=== PATIENT | male | born 1980 | race Caucasian/White ===

== ENCOUNTER 2016-07-07 18:21 | Inpatient (IN) | payer OTHER ==
--- NOTE | 2016-07-07 18:30 | ED Physician Chart ---
Chief Complaint/HPI - Patient Information Date Seen:: 07/07/16 Time Seen:: 18:30 Chief Complaint:: Abdominal pain for about 2 weeks. History of Present Illness:: Pt c/o intermittent epigastric/RUQ pain for about 2 weeks, precipitated and aggravated with food ingestion, especially fatty/greasy food and dairy products. Pain is characterized as localized and crampy in nature. No fever. Transient nausea/vomiting yesterday with vomitus consists of gastric content. No hematemesis. Last BM this morning. Small in quantity with normal color/ consistency. No hematochezia or melena. No lightheadedness. Allergies:: NKA Vitals:: see Nurse Note. Historian:: Patient Family MD/PCP:: unknown LMP:: N/A Review:: Nurse's Note Reviewed Review of Systems - Review of Systems General/Constitutional: No fever, No chills, No weight loss, No weakness, No diaphoresis, No edema, No loss of appetite Skin: No skin lesions, No rash, No bruising Head: No headache, No light-headedness Eyes: No loss of vision, No pain, No diplopia ENT: No earache, No nasal drainage, No sore throat, No tinnitus Neck: No neck pain, No swelling, No thyromegaly, No stiffness, No mass noted Cardio Vascular: No chest pain, No palpitations, No PND, No orthopnea, No edema Pulmonary: No SOB, No cough, No sputum, No wheezing GI: Nausea, Vomiting (transient, see HPI.), No diarrhea, Pain, No melena, No hematochezia, No constipation, No hematemesis G/U: No dysuria, No frequency, No hematuria Musculoskeletal: No bone or joint pain, No back pain, No muscle pain Endocrine: No polyuria, No polydipsia Psychiatric: No prior psych history Hematopoietic: No bruising, No lymphadenopathy Allergic/Immuno: No urticaria, No angioedema Neurological: No syncope, No focal symptoms, No weakness, No paresthesia, No headache, No seizure, No dizziness, No confusion, No vertigo Past Medical History - Past Medical History Past Medical History: PUD/GERD Family History: Cancer (PGM) Social History: Non Smoker, No Alcohol, No Drug Use, Legally, Employed , Other (lives with his children.) Employment:: [employer] Surgical History: None Psychiatricy History: None Medication: Reviewed Family Medical History - Family Member Mother History Unknown: Yes Physical Exam - Physical Examination General/Constitutional: Awake, Well-developed, well-nourished, Alert, No distress, GCS 15, Non-toxic appearing, Ambulatory Head: Atraumatic Eyes: Lids, conjuctiva normal, PERRL, EOMI Other Eyes comments:: Scleral icterus noticed. Skin: Nl inspection, No rash, No skin lesions, No ecchymosis, Well hydrated, No lymphadenopathy ENMT: External ears, nose nl, Nasal exam nl, Lips, teeth, gums nl, Oropharynx nl Neck: Nontender, Full ROM w/o pain, No nuchal rigidity, No mass, No stridor Respiratory: Nl effort/Exclusion, Clear to Auscultation, No Wheeze/Rhonchi/Rales Cardio Vascular: RRR, No murmur, gallop, rubs, NL S1 S2 GI: No organomegaly, No hernia, Normal BS's, Nondistended, No mass/bruits, No McBurney tenderness Other GI comments:: Tenderness to palpation at RUQ. No R/G. +/- Kramer's sign. Negative [place]'s and Harris-Thibodeaux's signs. Extremities: No tenderness or effusion, Full ROM, normal strength in all extremities, No edema, Normal digits & nails Neuro/Psych: Alert/oriented (oriented x 3.), Judgement/insight normal, Mood normal, Normal gait, No focal deficits Labs/Radiology/EKG Results - Lab Results Results: Laboratory Tests 07/07/16 07/07/16 07/07/16 19:05 19:20 19:20 WBC 7.8 RBC 5.38 Hgb 15.7 Hct 45.6 MCV 84.8 MCH 29.2 MCHC Differential 34.4 RDW 12.0 Plt Count 348 MPV 9.5 Neutrophils % 68.8 Lymphocytes % 19.7 L Monocytes % 6.7 Eosinophils % 4.8 Basophils % 0.0 PT 10.4 INR 1.05 PTT (Actin FS) 26.1 Sodium Potassium Chloride Carbon Dioxide Anion Gap BUN Creatinine Est GFR ( Amer) Est GFR (Non-Af Amer) BUN/Creatinine Ratio Glucose Calcium Total Bilirubin AST ALT Alkaline Phosphatase Total Protein Albumin Globulin Albumin/Globulin Ratio Amylase Lipase Urine Source CLEAN C Urine Color ORANGE Urine Clarity HAZY Urine pH 5.0 Ur Specific [place] Urine Protein 100 H Urine Glucose (UA) 100 H Urine Ketones 15 H Urine Blood TRACE Urine Nitrate NEGATIVE Urine Bilirubin LARGE H Urine Urobilinogen >=8.0 H Ur Leukocyte Esterase NEGATIVE Urine RBC 0-2 H Urine WBC 0-2 Ur Epithelial Cells OCCASIONAL Urine Bacteria FEW Urine Mucus MODERATE 07/07/16 19:20 WBC RBC Hgb Hct MCV MCH MCHC Differential RDW Plt Count MPV Neutrophils % Lymphocytes % Monocytes % Eosinophils % Basophils % PT INR PTT (Actin FS) Sodium 136 Potassium 3.3 L Chloride 98 Carbon Dioxide 28.3 Anion Gap 13.0 BUN 13 Creatinine 1.4 H Est GFR ( Amer) > 60.0 Est GFR (Non-Af Amer) > 60.0 BUN/Creatinine Ratio 9.3 Glucose 105 Calcium 9.7 Total Bilirubin 5.7 H AST 536 H ALT 731 H Alkaline Phosphatase 318 H Total Protein 8.1 Albumin 4.5 Globulin 3.6 Albumin/Globulin Ratio 1.3 Amylase 100 Lipase 52 Urine Source Urine Color Urine Clarity Urine pH Ur Specific [place] Urine Protein Urine Glucose (UA) Urine Ketones Urine Blood Urine Nitrate Urine Bilirubin Urine Urobilinogen Ur Leukocyte Esterase Urine RBC Urine WBC Ur Epithelial Cells Urine Bacteria Urine Mucus - Radiology Results Results: Abdominal sonogram (Preliminary report): Significant for multiple mobile gallstones seen within gallbladder; thickened wall 4.5 mm. CBD 0.96 cm thickened. See report for details. ED Septic Shock - . Is Septic Shock (SBP<90, OR Lactate>4 mmol\L) present?: No Reassessment (Disposition) - Reassessment Reassessment:: 1849 Pain medication was offered, but pt declined and stated that his pain is tolerable. 2019 Pt remains stable and comfortable. Remaining lab and abdominal sonographic reports just became available. Lab and sonographic findings have been reviewed with pt. Management plan has been discussed. Dr. Rivers is to be contacted. 2048 Case was discussed with Dr. Rivers with [facility], lab and sonographic findings reviewed. He concurred with present management. Pt is to be admitted to Med/Surg [facility] under his care. He will arrange G.I. and Surgical consultations for pt. Reassessment Condition:: Improved - Diagnosis Diagnosis:: Obstructive jaundice with biliary colic with early acute cholescystitis, stable. - Patient Disposition Admitted to:: Med/Surg Admitting Medical Physician:: Dayton Rivers Time:: 20:55 Condition at Disposition:: Stable, Improved
[2016-07-07 19:36] LABS: % EOSINOPHILS 4.8 % (0.0-5.0); % LYMPHOCYTES 19.7 % (20.0-50.0); % MONOCYTES 6.7 % (2.0-10.0); % NEUTROPHILS 68.8 % (40.0-80.0); HEMATOCRIT 45.6 % (39.0-49.0); HEMOGLOBIN 15.7 gm/dL (13.2-17.3); MEAN CELL VOLUME 84.8 fl (80-99); MEAN CORPUSCULAR HEMOGLOBIN 29.2 pg (26.0-30.0); MEAN CORPUSCULAR HGB CONC 34.4 pg (28.0-36.0); MEAN PLATELET VOLUME 9.5 fl; NEUTROPHILE ABSOLUTE 5.4 Th/cmm (1.8-8.0); PLATELET COUNT 348 Th/cmm (150-400); RED BLOOD COUNT 5.38 Mil/cmm (4.30-5.70); WHITE BLOOD COUNT 7.8 Th/cmm (4.8-10.8)
[2016-07-07 19:44] LABS: INR 1.05 (0.5-1.4); PROTHROMBIN TIME (TEST) 10.4 SECONDS (9.5-11.5)
[2016-07-07 19:48] LABS: ALB/GLOB RATIO 1.3 (1.0-1.8); ALKALINE PHOSPHATASE 318 U/L (34-104); AMYLASE SERUM 100 U/L (29-103); BILIRUBIN,TOTAL 5.7 mg/dL (0.3-1.0); BUN - UREA NITROGEN 13 mg/dL (7-25); BUN/CREATININE RATIO 9.3; CALCIUM SERUM 9.7 mg/dL (8.6-10.3); CARBON DIOXIDE 28.3 mEq/L (21.0-31.0); CHLORIDE 98 mEq/L (98-107); CREATININE - SERUM 1.4 mg/dL (0.7-1.3); GLUCOSE 105 mg/dL (70-105); LIPASE 52 U/L (11-82); POTASSIUM SERUM 3.3 mEq/L (3.5-5.1); SGOT 536 U/L (13-39); SODIUM SERUM 136 mEq/L (136-145)
[2016-07-07 19:56] LABS: URINE COLOR ORANGE; URINE GLUCOSE (UA) 100 mg/dL (NEGATIVE)
[2016-07-07 19:57] LABS: URINE BILIRUBIN LARGE (NEGATIVE); URINE BLOOD TRACE (NEGATIVE); URINE KETONE 15 mg/dL (NEGATIVE); URINE PROTEIN 100 mg/dL (NEGATIVE); URINE UROBILINOGEN >=8.0 E.U./dL (0.2 - 1.0)
[2016-07-07 19:58] LABS: URINE BACTERIA FEW /hpf (NONE SEEN); URINE EPITHELIAL CELLS OCCASIONAL /lpf (FEW); URINE RBC 0-2 /hpf (0-5); URINE WBC 0-2 /hpf (0-5)
[2016-07-07 20:03] LABS: SGPT/ALT 731 U/L (7-52)
[2016-07-07] MEDS ORDERED: Potassium Chloride 20 mEq ER Tab PO ONE ×2 (20:19→21:07)
[2016-07-07] MEDS ORDERED: Piperacillin Sodium/Tazobact 3.375 gm Vial IV ONE (21:07)
[2016-07-07] MEDS ORDERED: D5-0.9%NS 1,000 ML IV SCH (21:30)
--- NOTE | 2016-07-07 22:33 | Admit Criteria Form ---
Admit Criteria Forms - Admit Criteria Diagnosis: GALLBLADDER OR BILE DUCT INFLAMMATION OR STONE Clinical Indications for Admission to Inpatient Care ( Place 'X' for any and all applicable criteria): Admission is indicated for patients with ANY ONE of the following(1)(2)(3)(4)(5) : [ ]I. Acute cholecystitis as indicated by ALL of the following: [ ]a) Right upper quadrant pain, mass, or tenderness [ ]b) Systemic signs of inflammation indicated by ANY ONE of the following: [ ]i) Fever [ ]ii) C-reactive protein level greater than 10 mg/L (95 nmol/L) [ ]iii) White blood cell count greater than 10,000/mm3 (10 x109/L) or less than 4000/mm3 (4 x109/L) [ X]II. Inpatient admission required rather than observation care (Also use Gallbladder or Bile Duct Inflammation or Stone: Observation Care as appropriate) because of ANY ONE of the following: [X ]a) Common bile duct obstruction diagnosed [ ]b) Vomiting that is severe or persistent [X ]c) Severe pain requiring acute inpatient management [ ]d) Signs of intestinal obstruction or peritonitis [A] [ ]e) Severe electrolyte abnormalities requiring inpatient care [ ]f) Absent bowel sounds with complete ileus(8) [ ]g) Hemodynamic instability [ ]h) High fever or infection requiring inpatient admission as indicated by ANY ONE of the following (9): [ ]1) Appropriate outpatient or observation care antimicrobial Treatment. unavailable, not effective, or not feasible [ ]2) Temperature greater than 104.9 degrees F (40.5 degrees C) (oral) [ ]3) Temperature greater than 103.1 degrees F (39.5 degrees C) (oral) or less than 96.8 degrees F (36 degrees C) (rectal) that does not respond to all emergency treatment measures [ ]4) Documented bacteremia [ ]i) IV fluid to replace significant ongoing losses (greater than 3 L/m2 per day) [ ]j) Percutaneous or open drainage (eg, abscess, biliary tract) procedures [ ]k) Immediate inpatient surgery [ X]l) Other condition, treatment or monitoring requiring inpatient admission [ ]III. Acute cholangitis as indicated by ALL of the following(9)(10): [ ]a) Systemic signs of inflammation indicated by ANY ONE of the following: [ ]i) Fever [ ]ii) C-reactive protein level greater than 10 mg/L (95 nmol /L) [ ]iii) White blood cell count greater than 10,000/mm3 (10 x109/L) or less than 4000/mm3 (4 x109/L) [ ]b) Evidence of common bile duct disease indicated by ANY ONE of the following: [ ]i) Total serum bilirubin level greater than or equal to 2 mg/dL (34 micromoles/L) [ ]ii) Liver function test (alkaline phosphatase (ALP), r- glutamyltransferase (GGT), aspartate aminotransferase (AST), or alanine aminotransferase (ALT)) greater than 1.5 times the upper limit of normal[B] [ ]iii) Hepatobiliary imaging showing biliary dilatation or evidence of etiology (eg, stricture, stone, previously placed stent) Extended stay beyond goal length of stay may be needed for (1)(2)): [ ]a) Bacteremia or Hemodynamic instability [ ]b) Cholecystectomy [ ]c) Other surgical procedure(24) [ ]d) Percutaneous or endoscopic ultrasound-guided cholecystostomy The original [facility] [employer] content created by [facility] [employer] has been revised. The portions of the content which have been revised are identified through the use of italic text or in bold, and [facility] has neither reviewed nor approved the modified material. All other unmodified content is copyright [facility]. Please see references footnoted in the original [facility] edition 2016 Admit Criteria Met?: Yes
[2016-07-08] MEDS ORDERED: Morphine Sulfate 4 mg/mL 1mL Syr IVP PRN (00:16)
[2016-07-08] MEDS: Morphine Sulfate 2 mg/mL 1mL Syr IVP PRN ×2 (00:56→23:47)
[2016-07-08] MEDS: D5-0.9%NS 1,000 ML IV SCH ×2 (00:57→16:46)
[2016-07-08 07:01] VITALS: BP 137/81
[2016-07-08 08:03] LABS: ALB/GLOB RATIO 1.2 (1.0-1.8); ALKALINE PHOSPHATASE 282 U/L (34-104); ANION GAP 8.2 (7.0-16.0); BILIRUBIN,TOTAL 5.2 mg/dL (0.3-1.0); BUN - UREA NITROGEN 13 mg/dL (7-25); CALCIUM SERUM 9.1 mg/dL (8.6-10.3); CARBON DIOXIDE 25.4 mEq/L (21.0-31.0); CHLORIDE 106 mEq/L (98-107); CREATININE - SERUM 1.3 mg/dL (0.7-1.3); GLUCOSE 101 mg/dL (70-105); POTASSIUM SERUM 3.6 mEq/L (3.5-5.1); SGOT 441 U/L (13-39); SODIUM SERUM 136 mEq/L (136-145)
[2016-07-08 08:17] LABS: % BASOPHILS 0.1 % (0.0-2.0); % EOSINOPHILS 7.2 % (0.0-5.0); % LYMPHOCYTES 30.1 % (20.0-50.0); % MONOCYTES 10.8 % (2.0-10.0); % NEUTROPHILS 51.8 % (40.0-80.0); HEMATOCRIT 43.2 % (39.0-49.0); HEMOGLOBIN 14.3 gm/dL (13.2-17.3); MEAN CELL VOLUME 86.2 fl (80-99); MEAN CORPUSCULAR HEMOGLOBIN 28.5 pg (26.0-30.0); MEAN PLATELET VOLUME 9.6 fl; NEUTROPHILE ABSOLUTE 2.5 Th/cmm (1.8-8.0); PLATELET COUNT 322 Th/cmm (150-400); RED BLOOD COUNT 5.01 Mil/cmm (4.30-5.70); RED CELL DISTRIBUTION WIDTH 12.2 % (11.5-20.0)
[2016-07-08 08:20] LABS: SGPT/ALT 672 U/L (7-52)
[2016-07-08 08:21] LABS: WHITE BLOOD COUNT 4.7 Th/cmm (4.8-10.8)
[2016-07-08] MEDS ORDERED: Pneumococcal Vaccine 0.5 mL Vial IM ONE (10:08)
[2016-07-08] MEDS ORDERED: Influenza Vaccine 0.5 mL Syr IM ONE (10:08)
--- NOTE | 2016-07-08 15:12 | Diagnostic Imaging Report ---
Abdominal ultrasound HISTORY: Pain The liver exhibits a homogeneous parenchyma. No focal lesions. The exam of the gallbladder demonstrates multiple intraluminal echogenic densities with acoustic shadowing. Findings are consistent with cholelithiasis. The common bile duct is slightly dilated (9 mm). The pancreas cannot be seen due to bowel gas. The kidneys appear normal bilaterally. The spleen is normal in size. No other retroperitoneal or intra-abdominal abnormalities. IMPRESSION: 1. Findings consistent with cholelithiasis 2. Slightly dilated common bile duct (9 mm).
--- NOTE | 2016-07-08 16:36 | Diagnostic Imaging Report ---
Radionuclide biliary scan (HIDA scan) HISTORY: Pain, cholelithiasis 5.1 mCi technetium labeled biliary age and was using the exam. There is normal hepatic uptake. There is a report clearance and virtually no excretion of nuclide into the common bile duct, gallbladder or small bowel. Findings suggest changes associated with hepatocellular dysfunction. Correlation with laboratory data is needed. IMPRESSION: 1. Little hepatic clearance and excretion suggesting hepatocellular dysfunction. No excretion of nuclide into the gallbladder or small bowel. The findings should be correlated clinically and with laboratory data.
--- NOTE | 2016-07-08 21:48 | Consultation ---
REQUESTING PHYSICIAN: Dayton Rivers M.D. REASON FOR CONSULTATION: Abdominal pain. HISTORY OF PRESENT ILLNESS: A 35-year-old male, otherwise healthy, admitted for a few day history of right upper quadrant abdominal pain with some nausea without emesis. This pain has been going on and off for the last 2 weeks, it became worse 2 days ago. He had nausea, vomiting, fevers and chills. He had a CT and ultrasound done at the outside hospital that showed cholelithiasis. There was also a slightly dilated 9 mm bile duct. PAST MEDICAL HISTORY: As above. PAST SURGICAL HISTORY: Negative. MEDICATIONS: IV fluids, morphine and Zosyn. ALLERGIES: None. SOCIAL HISTORY: No recent tobacco, alcohol, or drugs. FAMILY HISTORY: Noncontributory. REVIEW OF SYSTEMS: Negative. PHYSICAL EXAMINATION: VITAL SIGNS: Temperature 98.3, blood pressure 97/61, pulse of 59, respirations 20, O2 sat is 100%. GENERAL: The patient is a well-developed, well-nourished male in no acute distress. HEENT: Sclerae not anicteric. Oropharynx is clear. CARDIOVASCULAR: Regular rate and rhythm. LUNGS: Clear to auscultation bilaterally. ABDOMEN: Soft, mild epigastric and right upper quadrant tenderness to palpation without rebound or guarding. No hepatosplenomegaly appreciated. EXTREMITIES: No clubbing, cyanosis or edema. RECTAL: Deferred. LABORATORY DATA AND IMAGING: WBC 4.7, hemoglobin 14.3, platelet count 322. INR is normal. Creatinine is normal. Bilirubin 5.2, AST 441, ALT 672, alkaline phosphatase 282. Albumin 3.9. Lipase normal. ASSESSMENT: 1. Right upper quadrant abdominal pain with possible acute cholecystitis and/or choledocholithiasis. 2. Abnormal liver enzymes. RECOMMENDATIONS: 1. We will obtain MRCP to rule out bile duct stone. If this is positive, then consider ERCP to clear the bile duct. 2. Check HIDA scan. 3. Antibiotics. 4. Follow up liver labs. 5. Surgical evaluation for consideration of cholecystectomy. Thank you, Dr. Dayton Rivers for involving us in the care of your patient. If you have any further questions, please call us. JOB# [id number]
--- NOTE | 2016-07-08 23:26 | History & Physical ---
CHIEF COMPLAINT: Abdominal pain. HISTORY OF PRESENT ILLNESS: The patient is a 35-year-old male who complains of intermittent progressive right upper quadrant abdominal pain for 2 weeks. ____ aggravated with food ____ dairy products. The pain is ____ localized and crampy in nature. No fever. The patient ____ nausea and vomiting yesterday with vomitus consisting of gastric content. No hematemesis. Less bowel movement on the morning of admission. No hematochezia or melena ____. ALLERGIES: No known allergies. REVIEW OF SYSTEMS: See present illness. PAST MEDICAL HISTORY: Peptic ulcer disease and GERD. SOCIAL HISTORY: No reports of smoking, drinking, or IV drug use. PAST SURGICAL HISTORY: Negative. MEDICATIONS: See medication reconciliation form. PHYSICAL EXAMINATION: GENERAL: The patient is awake and alert, nontoxic in appearance. VITAL SIGNS: On admission, temperature 98.5, pulse 62, blood pressure 136/91, respiratory rate 16, and O2 sat 97% on room air. HEENT: Normocephalic and atraumatic. Extraocular movements are intact. Pupils are equally round and reactive to light and accommodation. Oropharynx is clear. NECK: Supple. No thyromegaly. No lymphadenopathy. HEART: S1 and S2. No murmurs or gallops. RESPIRATORY: Clear. No wheezes or rhonchi. GASTROINTESTINAL: Abdomen is soft. Tender to palpation in the right upper quadrant. No rigidity. No guarding. Positive bowel sounds. GENITOURINARY: No CVA tenderness, no suprapubic tenderness. BACK: ____ tenderness. EXTREMITIES: Equal pulses bilaterally. No cyanosis, clubbing, or edema. SKIN: Negative. PSYCH: Negative. NEUROLOGICAL: Cranial nerves II-XII intact. Extraocular movements intact ____ LABORATORY DATA: Hematology: WBC 7.8, hemoglobin 15.7, hematocrit ____, platelet count 348 ____. PT 10.4, INR 1.05, PTT 26.1. Chemistry: Sodium ____, chloride 98, bicarb 28, anion gap 13, BUN 13, creatine ____, GFR is more than 60, glucose is 105, calcium 9.7. Total bili is 5.7, AST 536, ALT 731, alk phos is 318, total protein ____, albumin 4.5, globulin 3.6, amylase 100, lipase 52. Urinalysis shows 100 protein, 100 glucose, 15 ketones, large bilirubin, ____. RADIOLOGY: Abdominal ultrasound shows findings of cholelithiasis ____ common bile duct. IMPRESSION: 1. Obstructive jaundice. 2. Biliary colic. 3. Acute cholecystis. 4. Acute kidney injury. 5. Transaminitis. 6. ____. PLAN: Admitted the patient to med/surge unit ____ Dr. Philipp Rivers. ID consultation by Dr. Yen Banks. GI consultation by [facility]. Obtain further labs ____ as needed. JOB# [id number]
--- NOTE | 2016-07-09 02:24 | Consultation ---
PRIMARY CARE PHYSICIAN: Dr. Rivers. HISTORY OF PRESENT ILLNESS: This is a 35-year-old male who was brought to the Emergency Room with complaint of 1 week of pain in the right upper quadrant and epigastric area, moderate to severe, got worse with off and on and he decided to come to Emergency Room, where the patient was found to have cholecystitis. Infectious consultation was called for further treatment. The patient's antibiotic adjusted and examined as soon as possible. The patient also requested to have surgical and GI evaluation. Discussed with the staff, pertinent information obtained, and antibiotic adjusted. The patient was given Zosyn in the ER one dose. PAST MEDICAL HISTORY: Recurrent abdominal pain. FAMILY HISTORY: Negative. ALLERGIES: The patient is an ex-smoker. REVIEW OF SYSTEMS: A 14-point review of systems negative. PHYSICAL EXAMINATION: GENERAL: The patient is alert, awake, and oriented x 3. VITAL SIGNS: Temperature is 99.1, pulse 65, respirations 16, blood pressure 123/86, and oxygen saturation is 96%. HEENT: Mild pallor. No icterus. No plaque. NECK: Supple. LUNGS: Breath sounds bilateral . CARDIOVASCULAR: S1, S2. ABDOMEN: Tenderness epigastric right upper quadrant. No rebound and no ascites. EXTREMITIES: No ____ no focal deficits. Reflex equal both sides. Plantar flexors. LABORATORY DATA: White count is 7000, hemoglobin is 15 g, platelets 348,000, and creatinine 1.4. AST and ALT 537 and 731, alkaline phosphatase 318. UA shows protein 100, the large bilirubin. Ultrasound preliminary report shows thickening gallbladder and dilated CBD. DIAGNOSIS: Obstructive jaundice with possible common bile duct stone. PLAN: The patient started on Zosyn IV, pharmacy to adjust, GI surgery evaluation. Supportive care discussed with the patient and agreed with the current management. Thank you, Dr. Rivers for this consultation. JOB# [id number]
--- NOTE | 2016-07-09 04:44 | Consultation ---
SURGICAL CONSULTATION: TIME OF CONSULTATION: 10 p.m. HISTORY OF PRESENT ILLNESS: The patient is a 35-year-old male who complains of epigastric right upper quadrant abdominal pain for 2-week period of time intermittently. He developed severe abdominal pain, came to the Emergency Room, had some nausea and vomiting as well too. He was found on workup to have a markedly elevated total bilirubin, alkaline phosphatase, AST and ALT and abdominal ultrasound showed multiple gallstones and dilated common bile duct. A surgical evaluation was requested. He says that he has some mild abdominal pain still. PAST MEDICAL HISTORY: None. PAST SURGICAL HISTORY: None. MEDICATIONS: None. ALLERGIES: No known drug allergies. PHYSICAL EXAMINATION: VITAL SIGNS: He is 81 kg. BMI is 29. The patient is afebrile, T-max of 99.1. Vital signs otherwise stable. HEENT AND NECK: Within normal limits. No icteric sclerae, no jaundice. CHEST: Clear to auscultation bilaterally. There are no crackles, rales, rhonchi or wheezing. CARDIOVASCULAR: Regular rhythm and rate. No murmurs, rubs or gallops. S1, S2 within normal. ABDOMEN: Soft. Mild tenderness in the right upper quadrant and epigastric area. There is no guarding, rebound or generalized peritoneal sign. NEUROVASCULAR: Otherwise normal. EXTREMITIES: Otherwise normal. LABORATORY DATA: His white blood cell count is 4.7, H and H is 14 and 43, platelet count 322. His PT, PTT and INR are normal. His total bilirubin was 5.7 on admission, down to 5.2; AST was 536, down to 441; ALT was 731, down to 672; and alkaline phosphatase was 318, down to 282. Does have a few urine bacteria. Abdominal Ultrasound: Gallbladder demonstrates multiple intraluminal echogenic densities with acoustic shadowing consistent with cholelithiasis. Common bile duct is slightly dilated, 9 mm. The gallbladder nuclear scan shows a little hepatic clearance and excretion suggesting hepatocellular dysfunction. No excretion of mucoid into the gallbladder or small bowel. Limited study. IMPRESSION/PLAN: Symptomatic cholelithiasis, rule out acute cholecystitis versus cholangitis. I have reviewed the abdominal ultrasound and the HIDA scan. I believe the patient is scheduled for ERCP tomorrow by GI, Dr. Lacey. A CT scan of abdomen and pelvis is another choice of test that can be done as well too. Once the common bile duct issue has resolved and cleared of any stones, I would recommend a laparoscopic cholecystectomy on this admission prior to discharge. The risks of surgery were explained to the patient in detail including bleeding, infection, bile duct leak, bile duct injury, possibility of conversion to open cholecystectomy. He understands these risks. Nothing by mouth after midnight. JOB# [id number]
[2016-07-09 05:41] LABS: % BASOPHILS 0.5 % (0.0-2.0); % EOSINOPHILS 6.6 % (0.0-5.0); % LYMPHOCYTES 28.8 % (20.0-50.0); % MONOCYTES 9.2 % (2.0-10.0); % NEUTROPHILS 54.9 % (40.0-80.0); HEMATOCRIT 40.8 % (39.0-49.0); MEAN CELL VOLUME 85.4 fl (80-99); MEAN CORPUSCULAR HEMOGLOBIN 29.3 pg (26.0-30.0); MEAN CORPUSCULAR HGB CONC 34.3 pg (28.0-36.0); MEAN PLATELET VOLUME 8.7 fl; NEUTROPHILE ABSOLUTE 3.3 Th/cmm (1.8-8.0); PLATELET COUNT 308 Th/cmm (150-400); RED BLOOD COUNT 4.78 Mil/cmm (4.30-5.70); RED CELL DISTRIBUTION WIDTH 12.4 % (11.5-20.0); WHITE BLOOD COUNT 5.9 Th/cmm (4.8-10.8)
[2016-07-09 06:10] LABS: ALB/GLOB RATIO 1.2 (1.0-1.8); ALKALINE PHOSPHATASE 253 U/L (34-104); ANION GAP 7.1 (7.0-16.0); BUN - UREA NITROGEN 12 mg/dL (7-25); BUN/CREATININE RATIO 9.2; CALCIUM SERUM 8.9 mg/dL (8.6-10.3); CARBON DIOXIDE 24.4 mEq/L (21.0-31.0); CHLORIDE 108 mEq/L (98-107); CREATININE - SERUM 1.3 mg/dL (0.7-1.3); GLUCOSE 108 mg/dL (70-105); LIPASE 72 U/L (11-82); POTASSIUM SERUM 3.5 mEq/L (3.5-5.1); SGOT 264 U/L (13-39); SGPT/ALT 530 U/L (7-52); SODIUM SERUM 136 mEq/L (136-145)
--- NOTE | 2016-07-09 11:33 | Diagnostic Imaging Report ---
CT scan abdomen and pelvis without intravenous contrast HISTORY: Pain Total DLP equals 453 CTDI equals 8.8 Axial sections were obtained from the xiphoid process down to the pubic symphysis. The liver exhibits a normal size and contour. No focal lesions. The spleen appears normal. No abnormalities are seen in the region of the pancreas. Mildly distended gallbladder. No pericholecystic fluid is seen. The kidneys appear normal bilaterally. The exam of the pelvis demonstrates preservation of normal fat planes. No abnormal soft tissue masses or abnormal fluid collections. IMPRESSION: 1. Markedly dilated gallbladder with no other acute abnormalities.
--- NOTE | 2016-07-09 13:11 | General Progress Note ---
Subjective - Review of Systems Service Date: 07/09/16 Subjective: EVENTS NOTED. STILL SOME RUQ ABD PAIN. Objective - Results Result Diagrams: 07/09/16 05:32 07/09/16 05:32 Recent Labs: Laboratory Last Values WBC 5.9 Th/cmm (4.8-10.8) D 07/09/16 05:32 RBC 4.78 Mil/cmm (4.30-5.70) 07/09/16 05:32 Hgb 14.0 gm/dL (13.2-17.3) 07/09/16 05:32 Hct 40.8 % (39.0-49.0) 07/09/16 05:32 MCV 85.4 fl (80-99) 07/09/16 05:32 MCH 29.3 pg (26.0-30.0) 07/09/16 05:32 MCHC Differential 34.3 pg (28.0-36.0) 07/09/16 05:32 RDW 12.4 % (11.5-20.0) 07/09/16 05:32 Plt Count 308 Th/cmm (150-400) 07/09/16 05:32 MPV 8.7 fl 07/09/16 05:32 Neutrophils % 54.9 % (40.0-80.0) 07/09/16 05:32 Lymphocytes % 28.8 % (20.0-50.0) 07/09/16 05:32 Monocytes % 9.2 % (2.0-10.0) 07/09/16 05:32 Eosinophils % 6.6 % (0.0-5.0) H 07/09/16 05:32 Basophils % 0.5 % (0.0-2.0) 07/09/16 05:32 ESR 30 mm/hr (0-20) H 07/09/16 05:32 PT 10.4 SECONDS (9.5-11.5) 07/07/16 19:20 INR 1.05 (0.5-1.4) 07/07/16 19:20 PTT (Actin FS) 26.1 SECONDS (26.0-38.0) 07/07/16 19:20 Sodium 136 mEq/L (136-145) 07/09/16 05:32 Potassium 3.5 mEq/L (3.5-5.1) 07/09/16 05:32 Chloride 108 mEq/L (98-107) H 07/09/16 05:32 Carbon Dioxide 24.4 mEq/L (21.0-31.0) 07/09/16 05:32 Anion Gap 7.1 (7.0-16.0) 07/09/16 05:32 BUN 12 mg/dL (7-25) 07/09/16 05:32 Creatinine 1.3 mg/dL (0.7-1.3) 07/09/16 05:32 Est GFR ( Amer) > 60.0 ml/min (>90) 07/09/16 05:32 Est GFR (Non-Af Amer) > 60.0 ml/min 07/09/16 05:32 BUN/Creatinine Ratio 9.2 07/09/16 05:32 Glucose 108 mg/dL (70-105) H 07/09/16 05:32 Calcium 8.9 mg/dL (8.6-10.3) 07/09/16 05:32 Total Bilirubin 5.0 mg/dL (0.3-1.0) H 07/09/16 05:32 AST 264 U/L (13-39) H 07/09/16 05:32 ALT 530 U/L (7-52) H 07/09/16 05:32 Alkaline Phosphatase 253 U/L (34-104) H 07/09/16 05:32 C-Reactive Protein < 0.20 mg/dL (0.0-0.9) 07/09/16 05:32 Total Protein 6.7 gm/dL (6.0-8.3) 07/09/16 05:32 Albumin 3.7 gm/dL (4.2-5.5) L 07/09/16 05:32 Globulin 3.0 gm/dL 07/09/16 05:32 Albumin/Globulin Ratio 1.2 (1.0-1.8) 07/09/16 05:32 Amylase 100 U/L (29-103) 07/07/16 19:20 Lipase 72 U/L (11-82) 07/09/16 05:32 Urine Source CLEAN C 07/07/16 19:05 Urine Color ORANGE 07/07/16 19:05 Urine Clarity HAZY (CLEAR) 07/07/16 19:05 Urine pH 5.0 07/07/16 19:05 Ur Specific [place] (1.005-1.030) 07/07/16 19:05 Urine Protein 100 mg/dL (NEGATIVE) H 07/07/16 19:05 Urine Glucose (UA) 100 mg/dL (NEGATIVE) H 07/07/16 19:05 Urine Ketones 15 mg/dL (NEGATIVE) H 07/07/16 19:05 Urine Blood TRACE (NEGATIVE) 07/07/16 19:05 Urine Nitrate NEGATIVE (NEGATIVE) 07/07/16 19:05 Urine Bilirubin LARGE (NEGATIVE) H 07/07/16 19:05 Urine Urobilinogen >=8.0 E.U./dL (0.2 - 1.0) H 07/07/16 19:05 Ur Leukocyte Esterase NEGATIVE (NEGATIVE) 07/07/16 19:05 Urine RBC 0-2 /hpf (0-5) H 07/07/16 19:05 Urine WBC 0-2 /hpf (0-5) 07/07/16 19:05 Ur Epithelial Cells OCCASIONAL /lpf (FEW) 07/07/16 19:05 Urine Bacteria FEW /hpf (NONE SEEN) 07/07/16 19:05 Urine Mucus MODERATE /lpf (FEW) 07/07/16 19:05 - Physical Exam Vitals and I&O: Vital Signs Temp 97.8 F 07/09/16 09:47 Pulse 57 07/09/16 09:47 Resp 17 07/09/16 09:47 BP 85/49 07/09/16 09:47 Pulse Ox 100 07/09/16 09:47 Intake & Output 07/08/16 07/09/16 07/09/16 18:59 06:59 18:59 Intake Total 1249 225 Balance 1249 225 Intake: Intake, IV Amount 1149 200 D5-0.9%Ns 1,000 ml @ 60 949 mls/hr IV .[id number] YOHANA Rx #:[id number] Piperacillin Sodium/ 200 200 Tazobact 4.5 gm In Sodium Chloride 0.9% 100 ml @ 100 mls/hr IV Q8HR YOHANA Rx #:[id number] Oral 100 25 Other: # Voids 3 2 Active Medications: Current Medications Dextrose/Sodium Chloride (D5-0.9%Ns) 1,000 mls @ 60 mls/hr IV .[id number] YOHANA Stop: 09/06/16 00:44 Last Admin: 07/08/16 16:46 Dose: 60 mls/hr Piperacillin Sod/Tazobactam (Sod 4.5 gm/ Sodium Chloride) 100 mls @ 100 mls/hr IV Q8HR YOHANA Stop: 09/06/16 04:59 Last Admin: 07/09/16 12:30 Dose: 100 mls/hr Morphine Sulfate (Morphine) 2 mg IVP Q4HR PRN PRN Reason: moderate pain Stop: 09/06/16 00:13 Last Admin: 07/08/16 23:47 Dose: 2 mg Morphine Sulfate (Morphine) 4 mg IVP Q4H PRN PRN Reason: Severe Pain Stop: 09/06/16 00:15 General: Alert HEENT: Atraumatic Neck: Supple Cardiovascular: Regular rate Lungs: Clear to auscultation Abdomen: Bowel sounds, Soft, Tender (MILD RUQ) Assessment/Plan - Problem List Patient Problems: All Active Problems EPIGASTRIC PAIN (Acute) - Assessment Assessment: 1. ABD PAIN RUQ - LIKELY DUE TO ACUTE CHOLECYSTITIS AND/OR CBD STONE. 2. ABNORMAL LFT'S. 3. CHOLELITHIASIS. HIDA SHOWS MINIMAL HEPATIC EXCRETION. - Plan Plan: 1. AWAIT MRCP RESULTS - IF POSITIVE FOR CBD STONE, THEN WILL NEED PREOP ERCP TO CLEAR CBD. 2. SURGICAL F/U FOR LAP MICHAEL. 3. MONITOR LABS.
--- NOTE | 2016-07-09 14:06 | Diagnostic Imaging Report ---
Magnetic resonance Cholepancreatography (MRCP) HISTORY: Choledocholithiasis, pain Multiple MRI sequences including 3-D high-resolution thin/thick slab, SPGR were utilized. The exam demonstrates multiple intraluminal densities within the gallbladder consistent with extensive cholelithiasis. There is dilatation of the common bile duct (1.0 cm). There appears to be an approximate 4 mm intraluminal filling defect consistent with a calculus within the distal portion of the common bile duct. Minimal intrahepatic biliary dilatation. The pancreatic duct appears normal. The liver exhibits a normal size and contour. No focal lesions. The spleen appears normal. No focal parenchymal abdomen is seen within the pancreas. IMPRESSION: 1. Dilated gallbladder with evidence of extensive cholelithiasis 2. Dilated common bile duct (1.0 cm). This is associated with an approximate 4 mm intraluminal filling defect in the distal portion of the duct consistent with a calculus.
[2016-07-09] MEDS: D5-0.9%NS 1,000 ML IV SCH (16:00)
[2016-07-10 04:29] LABS: % BASOPHILS 0.3 % (0.0-2.0); % EOSINOPHILS 7.1 % (0.0-5.0); % LYMPHOCYTES 30.5 % (20.0-50.0); % MONOCYTES 8.7 % (2.0-10.0); % NEUTROPHILS 53.4 % (40.0-80.0); HEMATOCRIT 42.3 % (39.0-49.0); HEMOGLOBIN 14.1 gm/dL (13.2-17.3); MEAN CELL VOLUME 85.2 fl (80-99); MEAN CORPUSCULAR HEMOGLOBIN 28.5 pg (26.0-30.0); MEAN CORPUSCULAR HGB CONC 33.4 pg (28.0-36.0); MEAN PLATELET VOLUME 9.3 fl; NEUTROPHILE ABSOLUTE 2.9 Th/cmm (1.8-8.0); PLATELET COUNT 309 Th/cmm (150-400); RED BLOOD COUNT 4.96 Mil/cmm (4.30-5.70); RED CELL DISTRIBUTION WIDTH 12.3 % (11.5-20.0); WHITE BLOOD COUNT 5.5 Th/cmm (4.8-10.8)
[2016-07-10 05:01] LABS: INR 1.03 (0.5-1.4); PROTHROMBIN TIME (TEST) 10.2 SECONDS (9.5-11.5)
[2016-07-10 05:19] LABS: ALB/GLOB RATIO 1.2 (1.0-1.8); ALKALINE PHOSPHATASE 250 U/L (34-104); AMYLASE SERUM 45 U/L (29-103); ANION GAP 9.9 (7.0-16.0); BILIRUBIN,TOTAL 4.3 mg/dL (0.3-1.0); BUN - UREA NITROGEN 9 mg/dL (7-25); BUN/CREATININE RATIO 7.5; CALCIUM SERUM 8.6 mg/dL (8.6-10.3); CARBON DIOXIDE 24.6 mEq/L (21.0-31.0); CHLORIDE 104 mEq/L (98-107); CREATININE - SERUM 1.2 mg/dL (0.7-1.3); GLUCOSE 103 mg/dL (70-105); LIPASE 70 U/L (11-82); POTASSIUM SERUM 3.5 mEq/L (3.5-5.1); SGOT 236 U/L (13-39); SGPT/ALT 484 U/L (7-52); SODIUM SERUM 135 mEq/L (136-145)
[2016-07-10] MEDS ORDERED: IOHEXOL 300MG/ML 50 ML VIAL ONE ×2 (08:19→08:20)
[2016-07-10] MEDS ORDERED: Meperidine 25 mg/mL 1mL Syr IVP PRN (11:43)
[2016-07-10] MEDS ORDERED: Lactated Ringer 1,000 ML IV SCH (11:45)
[2016-07-10] MEDS ORDERED: Midazolam 1mg/ml 2 ml vial IV ONE (11:45)
[2016-07-10] MEDS ORDERED: fentaNYL Citrate 100 mcg/2mL Vial ONE (11:58)
--- NOTE | 2016-07-10 12:54 | Diagnostic Imaging Report ---
Fluoroscopy was utilized for facilitation of ERCP procedure. Please refer to the procedural report for complete details and recommendations. The total fluoroscopic time for the examination was 1 minute and 53 seconds.
--- NOTE | 2016-07-10 13:14 | Operative Report ---
PREPROCEDURE DIAGNOSIS: Choledocholithiasis. POSTPROCEDURE DIAGNOSES: 1. Choledocholithiasis. 2. Status post biliary sphincterotomy. 3. Status post common bile duct stone extraction by balloon sweeps. 4. Gallbladder not opacified. PROCEDURE: ERCP with sphincterotomy and stone extraction. INDICATIONS: A 35-year-old male admitted for jaundice and abdominal pain. Imaging suggested cholelithiasis and choledocholithiasis. An ERCP is planned today to clear the bile duct. CONSENT: Informed consent was obtained from the patient prior to procedure after explanation of risks, benefits and alternatives including but not limited to infection, bleeding, perforation, pancreatitis and . SEDATION: Monitored anesthesia care per Dr. Silva. DESCRIPTION OF PROCEDURE AND FINDINGS: The procedure took place as an inpatient in the operating room of [facility]. The patient was kept in a prone position. Adequate sedation was achieved by Dr. Silva. An Olympus therapeutic side-viewing duodenoscope was advanced via the patient's mouth and into the esophagus. It was advanced via the stomach into the duodenum up to second portion. The major ampulla was visualized and appeared normal. There was [id number] erosive duodenitis of the bulb and second portion. Photodocumentation was obtained. With the scope in the second portion of duodenum in the short position, the major ampulla was visualized. The bile duct was cannulated at first attempt using a sphincterotome cannula with guidewire assistance. Subsequent cholangiogram revealed a mildly dilated bile duct up to about 8-9 mm in greatest diameter with smooth tapering distally. At least 1-2 filling defects representing stones were identified in the midportion of the bile duct. The gallbladder was not opacified. Next, a biliary sphincterotomy was performed using the sphincterotome cannula over a guidewire. An approximate 1 cm, 80% cut was made. No immediate post-sphincterotomy complications such as bleeding or perforation were identified. This was followed by balloon sweeps and 3 stones were extracted from the bile duct into the duodenum. Final balloon occlusion cholangiogram was unremarkable and no further stones were identified in the bile duct. Again, the gallbladder was not opacified and cannot rule out cystic duct obstruction. There was a good flow of contrast and bile from the bile duct into the duodenum confirming patency of the sphincterotomy site. There is no need for bile duct stent placement. The patient tolerated the procedure well and no complications were noted. RECOMMENDATIONS: 1. Monitor pancreatic and liver labs. 2. Clear liquid diet for today. 3. May proceed with laparoscopic cholecystectomy as per the discretion of the surgeon. Thank you, Dr. Dayton Rivers, for involving us in the care of your patient. If you have any further questions, please call us. JOB# [id number] MTDD
[2016-07-10] MEDS: D5-0.9%NS 1,000 ML IV SCH (16:22)
[2016-07-10] MEDS: Morphine Sulfate 2 mg/mL 1mL Syr IVP PRN (20:28)
--- NOTE | 2016-07-10 22:24 | Progress Notes ---
TIME OF CONSULTATION: 10:40 p.m. SUBJECTIVE: The patient is a 35-year-old male admitted for abdominal pain, gallstones and elevated liver function test. Workup has been to rule out common bile duct stone. GI has been asked to see the patient. The patient still continues to have some right-sided upper abdominal pain, unchanged from yesterday. OBJECTIVE: VITAL SIGNS: Afebrile. Vital signs otherwise stable. HEENT AND NECK: Within normal limits. He has mild icteric sclerae, ____ obvious jaundice. CHEST: Clear to auscultation bilaterally. There are no crackles, rales, rhonchi or wheezing. HEART: Regular rhythm and rate. No murmurs, rubs or gallops. S1, S2 within normal. ABDOMEN: Soft. He has some mild right upper quadrant tenderness to deep palpation. He has no guarding, rebound or generalized peritoneal signs. NEUROVASCULAR: Otherwise normal. No flank tenderness. LABORATORY DATA: His white blood cell count 5.9, his H and H is 14 and 41, platelet count is 308. His total bilirubin 5.0, AST is 264, ALT is 530, alkaline phosphatase 253. His MRI of the abdomen reveals dilated gallbladder with evidence of extensive cholelithiasis, dilated common bile duct 1 cm. This is associated with an approximate 4 mm intraluminal filling defect in the distal portion of the duct consistent with a calculus. Blood cultures x2 were negative. PLAN: The patient is currently on Zosyn. Dr. Jaron Lacey is planning to do an ERCP on this patient tomorrow. I have discussed with him the risks and benefits of laparoscopic cholecystectomy. He wishes to proceed with laparoscopic cholecystectomy after the ERCP test and once the common bile duct is cleared of stone. Continue IV antibiotics, n.p.o. after midnight for anticipated procedure tomorrow. JOB# [id number] JONNATHAN
--- NOTE | 2016-07-11 00:27 | Progress Notes ---
SUBJECTIVE: The patient is awake and alert. The patient is on IV fluids. The patient is on pain medication. The patient is on IV antibiotics. OBJECTIVE: VITAL SIGNS: Temperature 98.6, pulse of 55, respiratory rate 18, and O2 sat is 98% on room air. CARDIOVASCULAR: S1, S2. RESPIRATORY: Clear. GASTROINTESTINAL: Soft. Positive bowel sounds. LABORATORY DATA: Hematology: WBC is 5.9, hemoglobin 14.0, platelet count of 308,000. ESR is 30. Chemistry: Sodium 137, potassium 3.5, chloride 108, bicarb 24, anion gap 7.1, BUN 12, GFR is more than 60. Glucose 108, calcium is 8.9. Total bili 5.0. AST 264. ALT 530. Alkaline phosphatase 253. Total protein 2.7, albumin 3.7, globulin 3.0, lipase 72. Microbiology: Blood culture from 07/07/2016 shows no growth. Radiology: MRCP shows dilated gallbladder with evidence of cholelithiasis. common bile duct 1.0 cm. The patient with filling defect duct calcific calculus. ASSESSMENT: 1. Obstructive jaundice. 2. Biliary colic. 3. Acute cholecystitis. 4. Acute kidney injury. 5. Transaminitis. 7. Gastroesophageal reflux disease. PLAN: Continue current medication. Awaiting culture results. The patient is scheduled for ERCP tomorrow by GI. After ERCP, the patient may require surgery. JOB# [id number] MTDD
[2016-07-11 05:45] LABS: % BASOPHILS 0.9 % (0.0-2.0); % EOSINOPHILS 7.4 % (0.0-5.0); % LYMPHOCYTES 23.1 % (20.0-50.0); % MONOCYTES 7.8 % (2.0-10.0); % NEUTROPHILS 60.8 % (40.0-80.0); HEMATOCRIT 39.2 % (39.0-49.0); HEMOGLOBIN 13.2 gm/dL (13.2-17.3); MEAN CELL VOLUME 85.8 fl (80-99); MEAN CORPUSCULAR HEMOGLOBIN 28.9 pg (26.0-30.0); MEAN CORPUSCULAR HGB CONC 33.7 pg (28.0-36.0); MEAN PLATELET VOLUME 9.6 fl; NEUTROPHILE ABSOLUTE 4.3 Th/cmm (1.8-8.0); PLATELET COUNT 268 Th/cmm (150-400); RED BLOOD COUNT 4.57 Mil/cmm (4.30-5.70); RED CELL DISTRIBUTION WIDTH 12.4 % (11.5-20.0)
[2016-07-11 05:57] LABS: ALB/GLOB RATIO 1.2 (1.0-1.8); ALKALINE PHOSPHATASE 209 U/L (34-104); ANION GAP 5.4 (7.0-16.0); BILIRUBIN,TOTAL 2.1 mg/dL (0.3-1.0); BUN - UREA NITROGEN 6 mg/dL (7-25); CALCIUM SERUM 8.1 mg/dL (8.6-10.3); CARBON DIOXIDE 23.8 mEq/L (21.0-31.0); CHLORIDE 109 mEq/L (98-107); CREATININE - SERUM 1.2 mg/dL (0.7-1.3); GLUCOSE 134 mg/dL (70-105); LIPASE 41 U/L (11-82); POTASSIUM SERUM 3.2 mEq/L (3.5-5.1); SGOT 117 U/L (13-39); SGPT/ALT 367 U/L (7-52); SODIUM SERUM 135 mEq/L (136-145)
[2016-07-11 06:03] LABS: WHITE BLOOD COUNT 7.1 Th/cmm (4.8-10.8)
[2016-07-11] MEDS: D5-0.9%NS 1,000 ML IV SCH ×2 (09:24→09:25)
[2016-07-11] MEDS ORDERED: Bupivacaine 0.5% W/Ep 10 mL Vial INJ ONE (11:30)
[2016-07-11] MEDS ORDERED: Meperidine 50 mg/mL 1mL Syr ONE ×2 (11:54→13:27)
[2016-07-11] MEDS ORDERED: Midazolam 1mg/ml 2 ml vial IV ONE (11:54)
[2016-07-11] MEDS ORDERED: Neostigmine 10mg/10mL Vial ONE (12:25)
[2016-07-11] MEDS ORDERED: Lactated Ringer 1,000 ML IV SCH (12:30)
[2016-07-11] MEDS ORDERED: Meperidine 25 mg/mL 1mL Syr IVP ONE (12:59)
[2016-07-11] MEDS: Morphine Sulfate 2 mg/mL 1mL Syr IVP PRN (17:09)
--- NOTE | 2016-07-11 18:54 | Operative Report ---
PREOPERATIVE DIAGNOSIS: Symptomatic gallstones, common bile duct stones. POSTOPERATIVE DIAGNOSIS: Symptomatic gallstones, common bile duct stones. OPERATION PERFORMED: Laparoscopic cholecystectomy. SPECIMENS: Gallbladder. ANESTHESIA: General and local. ANESTHESIOLOGIST: Dr. Silva. ESTIMATED BLOOD LOSS: 30 mL. SURGEON: Kevin Henson M.D. ASSOCIATE PROFESSOR OF ART HISTORY: None. PROSTHETIC DEVICES: None. COMPLICATIONS: None. DESCRIPTION OF PROCEDURE: After confirming the patient identification, procedure to be done, the patient was placed in supine position. The patient administered general anesthesia and intubated uneventfully. The abdomen was then prepped and draped in the usual sterile fashion. Timeout was performed. A supraumbilical transverse incision was made with a scalpel, fascia incised, and I entered into the abdominal cavity without injuring underlying bowel. CO2 pneumoperitoneum achieved using the open Schneider technique. The patient was placed in the laparoscopic cholecystectomy positioned head up and rotated to the left side. An 11 mm port was placed in the epigastric area. Two 5 mm ports were placed in right subcostal area. The gallbladder was retracted upwards and laterally. The gallbladder was somewhat distended and thickened gallbladder wall consistent with acute cholecystitis. There was a significant amount of inflammation around the neck of the gallbladder and there was omentum draped, dissected off the gallbladder using a [place] dissector. A careful dissection was performed in Calot triangle area. The cystic duct and cystic artery were identified and cleaned from surrounding structures. The gallbladder was dissected from the gallbladder plate of the liver. There were only 2 structures leading directly to the neck of the gallbladder, although the cystic duct was fairly dilated. It was somewhat elongated as well to which made the dissection a little bit more able to be done. The cystic artery and cystic duct were cleaned from surrounding structures. The critical view as described in the literature was then appreciated. The cystic artery was clipped twice proximally, once distally, and then divided. The only thing attached to the gallbladder was the cystic duct. The cystic duct was clipped twice proximally with large clips fairly across the entire cystic duct. The cystic duct was then divided. The gallbladder was then dissected free from the gallbladder plate of the liver. There was a significant amount of inflammation there which made the dissection difficult. The gallbladder was then detached from the liver, placed into an Endobag, removed through supraumbilical port site. The gallbladder fossa site was cauterized and hemostasis ensured. The irrigation fluid was suctioned out. A 10 flat Loy-Nick drain was placed in subhepatic space and brought out through one of the right subcostal trocar sites. The epigastric port was removed. The Brennan-Daniel closure system was used to approximate the fascia using 0 Vicryl stitches. A HUGH drain was placed into the abdomen, cut to length, and then brought out through one of the right subcostal trocar sites. The 5 mm port was removed under direct visualization. The pneumoperitoneum was released. The supraumbilical port fascia was approximated with interrupted 0 Vicryl sutures, the skin and subcutaneous. All port sites were then injected with 0.25% Marcaine with epinephrine. The skin was approximated using skin trish. Dressings were applied. The patient tolerated the procedure well. The patient was awoken up from anesthesia, taken to the recovery room in stable condition. JOB# [id number] JONNATHAN
--- NOTE | 2016-07-11 19:42 | Progress Notes ---
TIME OF PROGRESS NOTE: 9:11 p.m. SUBJECTIVE: The patient is a 35-year-old male followed for abdominal pain, cholelithiasis, common bile duct stones, elevated liver function tests. The patient underwent ERCP earlier today by Dr. Jaron Lacey, GI. He denies any abdominal pain. He is resting comfortably in bed. OBJECTIVE: VITAL SIGNS: He is afebrile. His vital signs are stable. HEENT AND NECK: Within normal limits. He has no icteric sclerae or jaundice. CHEST: Clear to auscultation bilaterally. There are no crackles, rales, rhonchi or wheezing. CARDIAC: Regular rhythm and rate. No murmurs, rubs or gallop. S1, S2 are normal. ABDOMEN: Soft, nontender, nondistended. NEUROVASCULAR: Otherwise normal. EXTREMITIES: Otherwise normal. LABORATORY DATA: His white blood cell count today was 5.5, H and H were 14 and 42, platelet count 309. His PT, INR and PTT were normal. His sodium was 135. His total bilirubin was 4.3, AST 236, ALT 484, and alkaline phosphatase 250. IMPRESSION/PLAN: Status post ERCP earlier today by Dr. Jaron Lacey. Post-procedure diagnoses include choledocholithiasis status post biliary sphincterotomy, status post the common bile duct stone extraction by balloon sweeps and gallbladder not opacified. The patient is planned for laparoscopic cholecystectomy tomorrow. The risks of procedure were explained to the patient in detail including bleeding, infection, possibility of bile duct leak or bile duct injury, possibility of conversion to open cholecystectomy. He wishes to proceed with the surgery. All questions were answered. He will be n.p.o. after midnight. IV antibiotics until surgery. JOB# [id number]
--- NOTE | 2016-07-12 01:22 | Progress Notes ---
SUBJECTIVE: The patient is awake and alert. The patient is on IV antibiotics. The patient is IV fluids. The patient is on pain medications. The patient underwent ERCP today. OBJECTIVE: VITAL SIGNS: Temperature 98.1, pulse 65, blood pressure 114/73, respiratory rate 17, and O2 sat is 97% on room air. CARDIOVASCULAR: S1 and S2. RESPIRATORY: Clear. GASTROINTESTINAL: Soft. Tender. Positive bowel sounds. LABORATORY DATA: Hematology: WBC is 5.5, hemoglobin 14.1, hematocrit 42.3, platelet count of 309, 7% eosinophils. ESR is 46. PT 10.2, INR 1.03, and PTT 25.6. Chemistry: Sodium 135, potassium 3.5, chloride 104, bicarb 24, anion gap 9.9. BUN 9. GFR is more than 60. Glucose is 103. Calcium is 8.6. Total bili is 4.3. AST is 236 and ALT is 46. Alkaline phosphatase is 250. C-reactive protein is less than 0.2. Albumin is 3.7. Globulin 3.1. Amylase 45. Lipase 70. Microbiology: Blood cultures from 07/07/2016 shows no growth. MRSA screen from 07/08/2016 is negative. ASSESSMENT: 1. Obstructive jaundice. 2. Biliary colic. 3. Acute cholecystitis. 4. Transaminitis. 5. Hyponatremia. PLAN: Continue current medication and treatment. Obtain labs in a.m. The patient is planned for possible laparoscopic cholecystectomy. Further recommendation per consults. JOB# [id number] [facility] CENTERJaqueline
[2016-07-12] MEDS: Morphine Sulfate 2 mg/mL 1mL Syr IVP PRN (01:42)
[2016-07-12 06:00] LABS: % BASOPHILS 0.1 % (0.0-2.0); % EOSINOPHILS 3.5 % (0.0-5.0); % LYMPHOCYTES 18.4 % (20.0-50.0); % MONOCYTES 8.1 % (2.0-10.0); % NEUTROPHILS 69.9 % (40.0-80.0); HEMATOCRIT 42.1 % (39.0-49.0); MEAN CELL VOLUME 85.7 fl (80-99); MEAN CORPUSCULAR HEMOGLOBIN 28.4 pg (26.0-30.0); MEAN CORPUSCULAR HGB CONC 33.2 pg (28.0-36.0); MEAN PLATELET VOLUME 9.2 fl; NEUTROPHILE ABSOLUTE 5.5 Th/cmm (1.8-8.0); PLATELET COUNT 285 Th/cmm (150-400); RED BLOOD COUNT 4.91 Mil/cmm (4.30-5.70); RED CELL DISTRIBUTION WIDTH 12.5 % (11.5-20.0); WHITE BLOOD COUNT 7.9 Th/cmm (4.8-10.8)
[2016-07-12 06:21] LABS: ALB/GLOB RATIO 1.3 (1.0-1.8); ALKALINE PHOSPHATASE 194 U/L (34-104); ANION GAP 6.2 (7.0-16.0); BILIRUBIN,TOTAL 1.7 mg/dL (0.3-1.0); BUN - UREA NITROGEN 4 mg/dL (7-25); BUN/CREATININE RATIO 3.6; CALCIUM SERUM 8.7 mg/dL (8.6-10.3); CARBON DIOXIDE 25.2 mEq/L (21.0-31.0); CHLORIDE 104 mEq/L (98-107); CREATININE - SERUM 1.1 mg/dL (0.7-1.3); GLUCOSE 133 mg/dL (70-105); POTASSIUM SERUM 3.4 mEq/L (3.5-5.1); SGOT 81 U/L (13-39); SGPT/ALT 312 U/L (7-52); SODIUM SERUM 132 mEq/L (136-145)
[2016-07-12] MEDS ORDERED: Hydrocodone/APAP 5mg/325mg Tab PO PRN (08:39)
[2016-07-12] MEDS ORDERED: Hydrocodone/APAP 10 mg/325 mg Tab PO PRN (08:39)
[2016-07-12] MEDS ORDERED: Maalox 30 mL Cup PO PRN (08:39)
[2016-07-12] MEDS ORDERED: Magnesium Hydroxide (MOM) 30 mL UDC PO PRN (08:39)
[2016-07-12] MEDS ORDERED: Potassium Chloride 20 mEq ER Tab PO ONE (08:41)
--- NOTE | 2016-07-12 08:44 | Progress Notes ---
SUBJECTIVE: This is a 35-year-old male status post ERCP yesterday for common bile duct stones extraction, 3 stones after sphincterotomy. I saw him last night after the procedure. He was well. He had no abdominal pain and also this morning, no abdominal pain. OBJECTIVE: VITAL SIGNS: He is afebrile, T-max 99.1. Vital signs are otherwise stable. He is awake, alert, and oriented, in no acute distress. CHEST: Clear to auscultation bilaterally. There are no crackles, rales, rhonchi, or wheezing. CARDIOVASCULAR: Regular rate. No murmurs, rubs, or gallops. S1 and S2 is normal. ABDOMEN: Soft, nontender, and nondistended. NEUROVASCULAR AND EXTREMITIES: Otherwise normal. No CVA, flank, or paraspinal tenderness. LABORATORY DATA: White blood cell count 7.1, H and H 13 and 39, and platelet count is 268,000. Sodium is 135, potassium 3.2, BUN and creatinine 6 and 1.2, glucose 134, total bilirubin down to 2.1, alkaline phosphatase 209. AST is 117 and ALT is 367. IMPRESSION AND PLAN: Liver function tests stable after ERCP yesterday with no obvious signs of sepsis, benign abdominal examination. The patient does have residual gallstones within the gallbladder. The patient wishes to proceed with laparoscopic cholecystectomy. The risks of the procedure including bleeding, infection, bile duct injury, bile duct leak, possible conversion to open cholecystectomy were discussed with the patient. He wished to proceed with the procedure. All questions answered. Plan for laparoscopic cholecystectomy today under general anesthesia. JOB# [id number] JONNATHAN
--- NOTE | 2016-07-13 02:50 | Progress Notes ---
TIME: 09:56 a.m. SUBJECTIVE: The patient postop day #1, status post laparoscopic cholecystectomy. He has mild incisional pain, but feels improved from yesterday. PHYSICAL EXAMINATION: GENERAL: He is afebrile. VITAL SIGNS: Otherwise, stable. HEENT AND NECK: Within normal limits. CHEST: Clear to auscultation bilaterally. No crackles, rales, rhonchi or wheezing. CARDIOVASCULAR: Regular rhythm and rate. No murmurs, rubs or gallops. S1 and S2 is normal. ABDOMEN: Soft, nontender and nondistended. Incision clean and dry. HUGH drain nonbilious output, 30 mL output, serosanguineous. NEUROVASCULAR AND EXTREMITIES: Otherwise, normal. LABORATORY DATA: His lab works this morning, white blood cell count 7.9, H and H is 14 and 42 and platelet count is 285. His sodium is 132, potassium 3.4, his glucose is 133, total bilirubin down to 1.7, alkaline phosphatase down to 194, AST is down to 81, ALT is down to 312. IMPRESSION/PLAN: Stable postop. A HUGH drain will be removed today and from my standpoint he can be discharged home. He can follow up in my office, advance his diet as tolerated. He knows to contact my office for any postoperative concerns or problems. JOB# [id number]
--- NOTE | 2016-07-13 04:02 | Progress Notes ---
SUBJECTIVE: The patient is on IV antibiotics. The patient underwent laparoscopic cholecystectomy today. The patient is on liquid diet. OBJECTIVE: VITAL SIGNS: pulse 66, blood pressure per labs, respirations 16, O2 sat 99% on room air. CARDIOVASCULAR: S1, S2. RESPIRATORY: Clear. GASTROINTESTINAL: Soft. Positive bowel sounds. LABORATORY DATA: Hematology: WBC 7.1, hemoglobin 13.2, hematocrit 39.2, platelet count 268, 7% eosinophils, ESR 44. Chemistry: Sodium 135, potassium 3.2, chloride 109, bicarb 23, anion gap 5, BUN 6, creatinine 1.2, GFR is more than 60, glucose 134, calcium 8.1, total bili is 2.1, AST 217, ALT 367, alk phosphatase 209, C-reactive protein is 0.5, albumin 3.4, globulin 2.8, lipase is 41. Microbiology: Blood culture from 07/07/2016, no growth. MRSA screening from 07/08/2016, negative. Radiology: No new results. ASSESSMENT: 1. Status post laparoscopic cholecystectomy. 2. Symptomatic gallstones. 3. Common bile duct stones. 4. Jaundice. 5. Biliary colic. 6. Acute cholecystitis. 7. Transaminitis (improved). 8. Gastroesophageal reflux disease. 9. Hyponatremia. 10. Hypokalemia. 11. Hypocholesteremia. PLAN: Continue current medications and treatment. Obtain labs in a.m. Advance diet as tolerated. Further recommendations per consults. JOB# [id number] JONNATHAN
--- NOTE | 2016-07-13 06:20 | Progress Notes ---
SUBJECTIVE: The patient is awake and alert. The patient complains of poor appetite. The patient is complaining of abdominal pain. The patient states IV pain medication only lasts for a couple of hours. The patient is on IV antibiotics. OBJECTIVE: VITAL SIGNS: Temperature 98.3, pulse 70, blood pressure 117/72, respiratory rate 20, and O2 sat is 98% on room air. CARDIOVASCULAR: S1 and S2. RESPIRATORY: Clear. GASTROINTESTINAL: Soft. Tender. Nondistended. Positive bowel sounds. LABORATORY DATA: Hematology: WBC 7.9, hemoglobin 14.0, hematocrit ____, platelet count of 285, 18% lymphocytes. ESR is 23. Chemistry: Sodium 132, potassium 3.4, chloride 104, bicarb 25, anion gap of 6.2, BUN 4, creatinine 1. GFR is more than 60. Glucose is 133, calcium 8.7. Total bili 4.7. AST 81. ALT per labs. Alk phos is 194. Albumin 3.8. Total protein 6.8. Globulin 3.0. Microbiology: Blood cultures from 07/07/2016 shows no growth. MRSA screen from 07/08/2016 is negative. ASSESSMENT: 1. Obstructive jaundice. 2. Biliary colic. 3. Acute cholecystitis. 4. Transaminitis. 5. Abdominal pain. 6. Symptomatic gallstones and common bile duct stone. 7. Status post laparoscopic cholecystectomy. 8. Hyponatremia. 9. Hypokalemia. 10. Hyperglycemia. PLAN: Continue current medication. Obtain labs in a.m. We will start the patient on p.o. pain medications. Advance diet as tolerated. Further recommendations per consults. We will correct potassium deficiency. JOB# [id number] JONNATHAN
--- NOTE | 2016-07-15 10:17 | Pathology Report ---
[id number] Collection date: 07/11/2016 Surgeon: Dr. Philipp Henson Specimen Description: Gallbladder Gross Description: Received in formalin is an 8.0 x 2.8 x 2.7 cm oval gallbladder with a smooth dunn-barker outer surface. Opening the gallbladder reveals numerous yellow-green gallstones ranging from 0.1 to 1.0 cm in greatest dimension. The gallbladder mucosa shows diffuse erosion and ulceration with the gallbladder wall ranging from 0.5 to 1.0 cm in thickness. Sectioning shows no focal lesions. Sand Worker sections are submitted in one cassette. Gross Pathologic Diagnosis: Cholelithiasis, gallbladder. Microscopic Description: The histologic sections show gallbladder wall with mucosal ulceration and associated chronic inflammation consisting of lymphocytes and plasma cells. Diagnosis: Chronic cholecystitis, gallbladder. [facility]# [id number] MTDD
--- NOTE | 2016-07-25 00:13 | Discharge Summary ---
DISCHARGE DIAGNOSES: 1. Obstructive jaundice. 2. Biliary colic. 3. Acute cholecystitis. 4. Transaminitis. 5. Abdominal pain. 6. Symptomatic gallstones. 7. Symptomatic common bile duct stone. 8. Status post laparoscopic cholecystectomy. 9. Hyponatremia. 10. Hypokalemia. 11. ____. HOSPITAL COURSE: The patient is a 35-year-old male who presented to the ER complaining of abdominal pain. The patient was admitted with diagnoses of obstructive jaundice, biliary colic, acute cholecystitis ____ transaminitis. The patient was admitted to Med/Surg Unit. Consultations obtained. GI consultation obtained with Dr. Lacey who stated the patient has a right upper quadrant pain with possible acute cholecystitis and/or choledocholithiasis. The patient was ordered for MRCP to rule out bile duct stone and if MRCP is positive, then the patient will require ERCP to clear bile duct. Recommendation was for IV antibiotics, order for HIDA scan and surgical consultation. General Surgery consultation was obtained from Dr. Henson, who stated ____ the patient's common bile duct issue resolved, the patient will require laparoscopic cholecystectomy prior to discharge. HIDA scan on the patient performed on 07/08/2016 shows a little hepatic clearance and excretion suggesting hepatocellular dysfunction. No excretion of mucoid into the gallbladder or small bowel. Abdomen and pelvis CT performed on 07/09/2016 showed markedly dilated gallbladder with no other acute abnormalities. MRCP performed on the patient on 07/09/2016 showed dilated gallbladder with evidence of extensive cholelithiasis. Dilated common bile duct. This is associated with an approximately 4-mm intraluminal defect in the distal portion of the duct consistent with a calculus. The patient underwent ERCP on 07/10/2016. The patient underwent ERCP ____ on 07/10/2016, which showed choledocholithiasis, status post biliary sphincterectomy, status post common bile duct stone extraction with balloon sweeps and gallbladder not opacified. The patient underwent laparoscopic cholecystectomy on 07/11/2016, which showed symptomatic gallstones and common bile duct stones. Results of the pathology, gallbladder showed gallbladder wall with ____ with lymphocytes and plasma cells ____ of gallbladder. JOB# [id number]
== END 2016-07-12 16:30 | disposition home or self-care (01) | DRG 418 ==
LOC: ER 18:21 → MSI 21:20
PROVIDERS: ADMIT Preventive Medicine Preventive Medicine/Occupational Environmental Medicine; ATTEND Preventive Medicine Preventive Medicine/Occupational Environmental Medicine
PROC: 0FC98ZZ Extirpation of Matter from Common Bile Duct, Via Natural or Artificial Opening Endoscopic (ICD-10-PCS; principal; 2016-07-10)
PROC: BF101ZZ Fluoroscopy of Bile Ducts using Low Osmolar Contrast (ICD-10-PCS; 2016-07-10)
PROC: 0F798ZZ Dilation of Common Bile Duct, Via Natural or Artificial Opening Endoscopic (ICD-10-PCS; 2016-07-10)
PROC: 0FT44ZZ Resection of Gallbladder, Percutaneous Endoscopic Approach (ICD-10-PCS; 2016-07-11)
DX: K80.62 Calculus of gallbladder and bile duct with acute cholecystitis without obstruction (principal); N17.9 Acute kidney failure, unspecified; E87.1 Hypo-osmolality and hyponatremia; K21.9 Gastro-esophageal reflux disease without esophagitis; R74.0 Nonspecific elevation of levels of transaminase and lactic acid dehydrogenase [LDH]; E87.6 Hypokalemia; E78.00 Pure hypercholesterolemia, unspecified; R73.9 Hyperglycemia, unspecified; Z87.11 Personal history of peptic ulcer disease
CPT/HCPCS: 36415-UA; 74330-TC; 76700-TC; 78226-TC; 80053-TC; 81001-TC; 82150-TC; 83690-TC; 85025-TC; 85610-TC; 85652-TC; 85730-TC; 86141-TC; 86850-TC; 86900-TC; 86901-TC; 88304-TC; 90732; 90782; 90799; 93005; A9537; J2001; J2250; J2270; J2543; J2704; J2710; J7030; J7042; Q9967; X6024; X6026; X6206; X6258; Z7506; Z7610; Z7610-TC